=== PATIENT | female | born 1965 | race Caucasian/White ===

== ENCOUNTER 2016-12-23 07:49 | Emergency (ER) | payer BC, OTHER ==
[~2016-12-23] VITALS: Ht 160 cm; Wt 65.5 kg
[2016-12-23 07:52] VITALS: Ht 160 cm; Wt 65.5 kg
--- NOTE | 2016-12-23 08:24 | ERD ---
ER Documentation Chief Complaint Date/Time DATE: 12/23/16 TIME: 08:22 Chief Complaint Complains of an allergic HPI 51-year-old female presents emergency department with allergic rhinitis symptoms. She states she has had allergies for many years to dust and dander, and has already tried multiple medications including nasal sprays, Mary Ann, Zyrtec, ketotifen. She reports bilateral eye redness, itching, runny nose, coughing. She denies any fevers, chills, chest pain or shortness of breath. ROS All systems reviewed and are negative except as per history of present illness. Allergies Allergies: Coded Allergies: No Known Allergy (Unverified , 12/23/16) PMhx/Soc Medical and Surgical Hx: pt denies Medical Hx Hx Alcohol Use: No Hx Substance Use: No Hx Tobacco Use: No Physical Exam Vitals Vital Signs Date Time Temp Pulse Resp B/P Pulse Ox O2 Delivery O2 Flow Rate FiO2 12/23/16 07:52 97.8 76 20 146/83 98 Physical Exam General: Well-developed, well-nourished. The patient appears in no acute distress. HEENT: Head is normocephalic, atraumatic. Bilateral conjunctival injection, no discharge. No scleral icterus. Neck: Supple. Nontender. Lungs: Clear to auscultation. Normal air movement. Heart: Regular rate and rhythm. S1 and S2 are normal. No murmurs, gallops, or rubs. Abdomen: Nondistended. Extremities: No clubbing or cyanosis. Moving extremities x 4. No weakness. Neurologic: Alert and oriented 3. No focal deficits. Normal speech and gait. Skin: Normal turgor. No rash or lesions. Results 24 hrs Current Medications Medications (Trade) Dose Ordered Sig/Oksana Route PRN Reason Start Time Stop Time Status Last Admin Dose Admin Dexamethasone (Decadron) 10 mg ONCE ONCE IM 12/23/16 08:30 12/23/16 08:31 Procedures/MDM 51-year-old female presents with allergic rhinitis, she has had multiple medications that have been given DrSahra, not improving. Decadron intramuscularly in the emergency department, feel the patient will benefit from this given as she is already tried multiple medications [id number]. She was advised that this medication should be done when her symptoms are not improving with other medications, and that she likely needs further allergy testing with a specialist. Departure Diagnosis: Primary Impression: Allergic rhinitis Condition: Good Patient Instructions: Allergic Rhinitis PUJA GARSIA PA-C Dec 23, 2016 08:24
[2016-12-23] MEDS ORDERED: DEXAMETHASONE 10 MG/ML 1 ML INJ IM ONE (08:30)
== END 2016-12-23 08:39 | disposition home or self-care (01) ==
LOC: FTE 07:49
DX: J30.9 Allergic rhinitis, unspecified (principal)
CPT/HCPCS: 96372; J1100; Z7502